=== PATIENT | female | born 1940 | race African-American/Black ===

== ENCOUNTER 2024-04-22 16:48 | Inpatient (IN) | payer MEDICARE ==
[~2024-04-22] VITALS: Ht 162.6 cm; Wt 72.6 kg
[2024-04-22 17:03] VITALS: BP 184/70; PULSE 134; RESP 22; TEMP 101.1; O2SAT 98
[2024-04-22] MEDS: ACETAMINOPHEN EXTRA STRENGTH 500 MG TAB PO ONE (17:50)
[2024-04-22] MEDS: NACL 0.9% 2,000 ML IV ONE (17:50)
[2024-04-22 18:01] LABS: HEMATOCRIT 21.8 % (36-48); MEAN CORPUSCULAR HEMOGLOBIN 31 pg (27-31); MEAN CORPUSCULAR HGB CONC 30 g/dL (33-37); MEAN CORPUSCULAR VOLUME 106.2 fL (80-94); PLATELET COUNT (AUTO) 163 K/uL (140-450); RED BLOOD CELL COUNT(AUTO) 2.05 MIL/uL (4.20-5.40)
[2024-04-22 18:03] LABS: HEMOGLOBIN 6.4 g/dL (12.0-16.0)
[2024-04-22 18:10] LABS: ANION GAP 19.3 (8-16); CALCIUM 8.1 mg/dL (8.5-10.1); CARBON DIOXIDE 21.1 mmol/L (21-32); CHLORIDE 98 mmol/L (98-107); CREATININE 0.8 mg/dL (0.6-1.3); GLUCOSE 225 mg/dL (74-106); POTASSIUM 4.4 mmol/L (3.5-5.1); SODIUM SERUM 134 mmol/L (136-145); UREA NITROGEN, BLOOD 19 mg/dL (7-18)
[2024-04-22 18:24] LABS: LACTIC ACID 2.5 mmol/L (0.4-2.0)
[2024-04-22] MEDS ORDERED: cefTRIAXone 1,000 MG VIAL ONE (18:39)
[2024-04-22 18:43] LABS: FLU A ANTIGEN negative (NEGATIVE); FLU B ANTIGEN NEGATIVE (NEGATIVE)
[2024-04-22 18:52] LABS: HYPOCHROMASIA 2+; LYMPHOCYTES % (MANUAL) 97 % (20-46); PLATELET ESTIMATE ADEQUATE
[2024-04-22] MEDS ORDERED: AZITHROMYCIN 500 MG INJ VIAL IV ONE (19:07)
[2024-04-22] MEDS: AZITHROMYCIN 500 MG in DEXTROSE 5% 250 ML IV ONE (19:12)
[2024-04-23] MEDS ORDERED: HYDROcodone/APAP 5/325 MG 1 TAB TAB PO PRN (01:40)
[2024-04-23] MEDS ORDERED: MORPHINE SULFATE 2 MG/ML SYR IVP PRN (01:40)
[2024-04-23] MEDS ORDERED: ACETAMINOPHEN 325 MG TAB PO PRN (01:40)
[2024-04-23 02:40] VITALS: BP 152/46; PULSE 104; PULSE 114; RESP 18; TEMP 98.1; O2SAT 95
[2024-04-23 04:00] VITALS: PULSE 101
[2024-04-23] MEDS ORDERED: CEFEPIME 2,000 MG in DEXTROSE 5% 100 ML IV SCH (05:00)
[2024-04-23 08:00] VITALS: BP 132/52; PULSE 93; PULSE 96; RESP 18; TEMP 98.1; O2SAT 100
[2024-04-23] MEDS: DEXAMETHASONE 10 MG/ML VIAL IVP SCH (09:17)
[2024-04-23] MEDS: CEFEPIME 2,000 MG in DEXTROSE 5% 100 ML IV SCH (09:17)
[2024-04-23 12:00] VITALS: BP 139/55; PULSE 90; PULSE 95; RESP 18; TEMP 98.3; O2SAT 98
[2024-04-23 16:00] VITALS: BP 144/84; PULSE 85; PULSE 88; RESP 18; TEMP 97.9; O2SAT 100
[2024-04-23] MEDS ORDERED: AZITHROMYCIN 500 MG in DEXTROSE 5% 250 ML IV SCH (21:00)
== END 2024-04-23 18:55 | disposition left against medical advice (07) | DRG 871 ==
LOC: MED 16:48 → MTU 04-23 01:41
PROVIDERS: ADMIT Student in an Organized Health Care Education/Training Program; ATTEND Student in an Organized Health Care Education/Training Program
PROC: 30233N1 Transfusion of Nonautologous Red Blood Cells into Peripheral Vein, Percutaneous Approach (ICD-10-PCS; principal; 2024-04-23)
DX: A41.9 Sepsis, unspecified organism (principal); J12.82 Pneumonia due to coronavirus disease 2019; U07.1 COVID-19; J96.01 Acute respiratory failure with hypoxia; E87.1 Hypo-osmolality and hyponatremia; C95.91 Leukemia, unspecified, in remission; E87.20 Acidosis, unspecified; I10 Essential (primary) hypertension; D64.9 Anemia, unspecified; Z53.29 Procedure and treatment not carried out because of patient's decision for other reasons
CPT/HCPCS: 36415; 36430; 71045; 80048; 83605; 83880; 84484; 85025; 86886; 86900; 86901; 86920; 87040; 87081; 87186; 93005; 96365; 96367; 99285; J0456; J0692; J0696; J1100; J7060; P9016